=== PATIENT | male | born 1990 | race Caucasian/White ===

== ENCOUNTER 2022-12-09 12:09 | Emergency (ER) | payer SELFPAY ==
[~2022-12-09] VITALS: Ht 177.8 cm; Wt 90.0 kg
[~2022-12-09 12:09] MED LIST: CPR500T PO; MECL-124 PO; MECL12.579 PO; OMEP40CA36 PO; ONDA8TAB9 PO; ONDN4T PO; PRD10T PO; SCR1T PO; SULF1TAB38 PO
[2022-12-09] MEDS ORDERED: NS IV 1000 ML 1,000 ML IV SCH (12:45)
[2022-12-09] MEDS ORDERED: TETANUS,DIPTH,PERTUSS P/F (BOOSTRIX) 0.5 ML VIAL IM ONE (13:00)
[2022-12-09 13:01] LABS: BASOPHILS # (AUTO) 0.1 10^3/uL (0.0-0.1); BASOPHILS % (AUTO) 0 % (0-10); EOSINOPHILS # (AUTO) 0.1 10^3/uL (0.0-0.3); EOSINOPHILS % (AUTO) 0 % (0-10); HEMATOCRIT 40 % (40-54); HEMOGLOBIN 13.4 g/dL (13.3-17.7); LYMPHOCYTES # (AUTO) 1.2 10^3/uL (1.0-4.0); LYMPHOCYTES % (AUTO) 6 % (12-44); MEAN CORPUSCULAR HEMOGLOBIN 29 pg (25-34); MEAN CORPUSCULAR HGB CONC 34 g/dL (32-36); MEAN CORPUSCULAR VOLUME 86 fL (80-99); MEAN PLATELET VOLUME 10.5 fL (9.0-12.2); MONOCYTES # (AUTO) 1.5 10^3/uL (0.0-1.0); MONOCYTES % (AUTO) 7 % (0-12); NEUTROPHILS # (AUTO) 19.3 10^3/uL (1.8-7.8); NEUTROPHILS % (AUTO) 87 % (42-75); PLATELET COUNT 297 10^3/uL (130-400); WHITE BLOOD COUNT 22.3 10^3/uL (4.3-11.0)
--- NOTE | 2022-12-09 13:06 | ED Integumentary General ---
General Chief Complaint: Skin/Wound Problems Stated Complaint: SORE ON NECK Nursing Triage Note: PT AMB TO ED BY POV WITH C/O WOUND ON BACK OF NECK. PT REPORTS HE GOT A HAIR CUT A WEEK AGO AND NOTICED HE GOT RAZOR BURN. ABCESS NOTED TO BACK OF HEAD, REPORT GREEN DRAINAGE. DENIES FEVER. REPORTS HE HAS "FELT SICK" AND TIRED SINCE YESTERDAY. REPORTS HE WAS SEEN AT [facility] YESTERDAY AND HAS BEEN TAKING BACTRIM. (PARI BEJARANO) History of Present Illness Date Seen by Provider: Dec 09, 2022 Time Seen by Provider: 12:30 Initial Comments 31 year old male reports getting hair cut on 11/30/22. A few days after that he was concerned about an ingrown hair on his posterior neck. It continued to get worse and he went to [facility] yesterday, was started on Bactrim. No culture was obtained. Hx of MRSA to finger and chest, > 5 years ago. Unsure of his last tetanus. 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 Timing/Duration: getting worse Severity: moderate Location: scalp Possible Cause: no cause identified Associated Symptoms: change in skin texture, fever, malaise; No nasal congestion, No sore throat, No swelling/mass/lumps; other (mass and swelling to posterior neck) (PARI BEJARANO) Allergies and Home Medications Allergies Uncoded Allergies: MELONS AND BANNANAS (Allergy, THROAT [facility], 10/02/10) Patient Home Medication List Home Medication List Reviewed: Yes (PARI BEJARANO) Ondansetron Hcl (Zofran Odt) 8 Mg/Tab Tab.rapdis, 8 MG PO Q6H Prescribed by: DIPAK CORNEJO on 03/10/13 2204 Review of Systems Review of Systems Constitutional: see HPI, fever, malaise Respiratory: no symptoms reported, see HPI Cardiovascular: no symptoms reported, see HPI Musculoskeletal: see HPI, neck pain (secondary to abscess) Skin: see HPI, change in color (erythema to neck) Psychiatric/Neurological: No Symptoms Reported, See HPI (PARI BEJARANO) All Other Systems Reviewed Negative Unless Noted: Yes (PARI BEJARANO) Past Ccvdmbq-Nswicm-Zkcigx Hx Patient Social History Tobacco Use?: Yes Tobacco type used: Cigarettes (1 pack/day) Smoking Status: Current Everyday Smoker Use of E-Cig and/or Vaping dev: No Substance use?: Yes Substance type: Marijuana Substance frequency: Daily Alcohol Use?: No Pt feels they are or have been: No (PARI BEJARANO) Immunizations Up To Date Influenza Vaccine Up-to-Date: No; Not Current First/Initial COVID19 Vaccinat: X2 (PARI BEJARANO) Seasonal Allergies Seasonal Allergies: No (PARI BEJARANO) Past Medical History Surgery/Hospitalization HX: DENIES Gastroesophageal Reflux (PARI BEJARANO) Family Medical History Reviewed and Corrections made (PARI BEJARANO) No Pertinent Family Hx (PARI BEJARANO) Physical Exam Vital Signs Vital Signs - First Documented 12/09/22 12:18 Temp 37.4 Pulse 133 Resp 18 B/P (MAP) 145/84 (104) Pulse Ox 98 O2 Delivery Room Air (BELL ELENA MD) Vital Signs Capillary Refill : Less Than 3 Seconds (PARI BEJARANO) General Appearance: WD/WN, no apparent distress HEENT: PERRL/EOMI, normal ENT inspection, TMs normal, pharynx normal Neck: full range of motion, lymphadenopathy (R), lymphadenopathy (L), tender midline, other (moderate swelling, abscess, erythema and purulent drainage from posterior neck. ) Cardiovascular: normal peripheral pulses, regular rate, rhythm Respiratory: chest non-tender, lungs clear Gastrointestinal: normal bowel sounds, non tender, soft Neurologic/Psychiatric: no motor/sensory deficits, alert, normal mood/affect, oriented x 3 Skin: normal color, warm/dry Skin Problem Location: other (posterior neck) Skin Problem Character: abscess (PARI BEJARANO) Procedures/Interventions I&D : Site: posterior neck Blade Size: 11 I & D Procedure: betadine prep Progress using sterile technique, skin prepped with betadine, skin infiltrated with 4 ml of 1% Lidocaine, 1.5 cm incision made to open abscess. significant purulent drainage evacuated, additional culture obtained. Wound irrigated with 1 Liter of Sterile saline and hibiclens. Wound packed with bactroban and bulky sterile d ressing applied, patient tolerated well. (PARI BEJARANO) Progress/Results/Core Measures Results/Orders Lab Results Laboratory Tests Test 12/09/22 12:45 12/09/22 13:50 Range/Units White Blood Count 22.3 H 4.3-11.0 10^3/uL Red Blood Count 4.61 4.30-5.52 10^6/uL Hemoglobin 13.4 13.3-17.7 g/dL Hematocrit 40 40-54 % Mean Corpuscular Volume 86 80-99 fL Mean Corpuscular Hemoglobin 29 25-34 pg Mean Corpuscular Hemoglobin Concent 34 32-36 g/dL Red Cell Distribution Width 12.4 10.0-14.5 % Platelet Count 297 130-400 10^3/uL Mean Platelet Volume 10.5 9.0-12.2 fL Immature Granulocyte % (Auto) 1 % Neutrophils (%) (Auto) 87 H 42-75 % Lymphocytes (%) (Auto) 6 L 12-44 % Monocytes (%) (Auto) 7 0-12 % Eosinophils (%) (Auto) 0 0-10 % Basophils (%) (Auto) 0 0-10 % Neutrophils # (Auto) 19.3 H 1.8-7.8 10^3/uL Lymphocytes # (Auto) 1.2 1.0-4.0 10^3/uL Monocytes # (Auto) 1.5 H 0.0-1.0 10^3/uL Eosinophils # (Auto) 0.1 0.0-0.3 10^3/uL Basophils # (Auto) 0.1 0.0-0.1 10^3/uL Immature Granulocyte # (Auto) 0.1 0.0-0.1 10^3/uL Neutrophils % (Manual) 82 % Lymphocytes % (Manual) 10 % Monocytes % (Manual) 7 % Basophils % (Manual) 1 % Blood Morphology Comment NORMAL Prothrombin Time 14.0 12.2-14.7 SEC INR Comment 1.0 0.8-1.4 Activated Partial Thromboplast Time 43 H 24-35 SEC Sodium Level 136 135-145 MMOL/L Potassium Level 3.5 L 3.6-5.0 MMOL/L Chloride Level 102 98-107 MMOL/L Carbon Dioxide Level 20 L 21-32 MMOL/L Anion Gap 14 5-14 MMOL/L Blood Urea Nitrogen 8 7-18 MG/DL Creatinine 0.67 0.60-1.30 MG/DL Estimat Glomerular Filtration Rate 128 BUN/Creatinine Ratio 12 Glucose Level 146 H 70-105 MG/DL Calcium Level 9.5 8.5-10.1 MG/DL Corrected Calcium 9.4 8.5-10.1 MG/DL Total Bilirubin 0.3 0.1-1.0 MG/DL Aspartate Amino Transf (AST/SGOT) 19 5-34 U/L Alanine Aminotransferase (ALT/SGPT) 16 0-55 U/L Alkaline Phosphatase 71 40-136 U/L C-Reactive Protein High Sensitivity 14.08 H 0.00-0.50 MG/DL Total Protein 8.0 6.4-8.2 GM/DL Albumin 4.1 3.2-4.5 GM/DL Lactic Acid Level 0.89 0.50-2.00 MMOL/L (BELL ELENA MD) Medications Given in ED Current Medications Medications Dose Ordered Sig/Cora Route Start Time Stop Time Status Last Admin Dose Admin Diphtheria/ Tetanus/Acell Pertussis 0.5 ml ONCE ONCE IM 12/09/22 13:00 12/09/22 13:01 DC 12/09/22 13:11 0.5 ML Iohexol 75 ml ONCE ONCE IV 12/09/22 13:30 12/09/22 13:31 DC 12/09/22 13:29 75 ML Sodium Chloride 100 ml ONCE ONCE IV 12/09/22 13:30 12/09/22 13:31 DC 12/09/22 13:29 80 ML Vancomycin HCl 1000 mg/Sodium Chloride 250 ml @ 250 mls/hr ONCE ONCE IV 12/09/22 14:15 12/09/22 15:14 DC 12/09/22 14:32 250 MLS/HR (BELL ELENA MD) Vital Signs/I&O 12/09/22 12/09/22 12:18 15:51 Temp 37.4 37.1 Pulse 133 96 Resp 18 18 B/P (MAP) 145/84 (104) 120/53 Pulse Ox 98 98 O2 Delivery Room Air Room Air (BELL ELENA MD) Blood Pressure Mean: 104 Progress Progress Note : Time: 12:30 Progress Note patient assessed, large abscess noted to neck. Patient is tachy, normotensive and afebrile at time of presentation. Will obtain labs, NS 1 L per IV, CT soft t issue/neck. Tetanus vaccine. Culture obtained. 1250 Dr. Cottrell in ED, visited with patient. WBC 22,000. Patient stating he can' t be admitted to the hospital due to work. Will contact her, if he is agreeable to admission. 1315 remainder of labs reviewed with patient. Discussed risk versus benefits of admission to the hospital for consult with general surgery and IV antibiotics. The patient refuses admission. We will give 1 g of IV vancomycin in the ED. Patient understands he will need to leave AMA, as i have serious concerns about his decision to leave and his health. 1330 CT results reviewed with the patient, will plan I and D. [address] Link, recommended I and D, continue Bactrim DS and follow up wound care. 1430 I and D completed, patient has remained afebrile, normotensive, and HR 70- 80 through ED visit. Discharge instructions and wound care discussed with the patient. He will follow up at [facility] or an ED if symptoms are not improving or worsen. Stressed the importance to have friend or co-worker clean wound and apply antibiotic ointment. Again, discussed with patient option to admit and he refused, requesting to sign AMA. (PARI BEJARANO) Diagnostic Imaging Diagonstic Imaging: CT Plain Films/CT/US/NM/MRI: other (neck, soft tissue) Comments NAME: FREDRICK ARORA [facility] REC#: [id number] PT STATUS: REG ER : 1990 PHYSICIAN: PARI BEJARANO ADMIT DATE: 12/09/22/ER Draft Date of Exam:12/09/22 CT NECK (SOFT TISSUE) W PROCEDURE: CT neck soft tissue with contrast. TECHNIQUE: Multiple contiguous axial images were obtained through the neck after the administration of contrast. Auto Exposure Controls were utilized during the CT exam to meet ALARA standards for radiation dose reduction. INDICATION: Posterior neck abscess. Neck pain. COMPARISON: None. FINDINGS: Focal edema and fluid centered in the dorsal subcutaneous soft tissues along the midline at the levels of C1 through C3 measuring approximately 6.3 x 2.1 x 3.8 cm (LR x AP x SI). No peripherally enhancing or organized fluid collections amenable to drainage are identified. No radiopaque foreign bodies. Diffusely prominent bilateral level 5 cervical lymph nodes. No necrotic lymph nodes are identified. No enhancing mass in the neck. The floor of the mouth, tongue base, epiglottis, and retropharyngeal space are unremarkable. No suspicious mass or enhancement in the pharynx or larynx. The orbits are negative. Major salivary glands are normal. Major vessels in the neck are grossly patent. Normal thyroid gland. Lung apices are clear. IMPRESSION: Focal edema, fluid, and inflammatory change centered in the dorsal midline posterior subcutaneous tissues, consistent with developing phlegmon. No drainable fluid collection is identified. Dictated on workstation # [id number] Dict: 12/09/22 1333 Trans: 12/09/22 1345 [id number] Interpreted by: DONNA ALVAREZ MD Electronically signed by: (PARI BEJARANO) Departure Impression Primary Impression: Abscess Disposition: 01 HOME, SELF-CARE Condition: Against Medical Advice Departure-Patient Inst. Decision time for Depature: 14:00 (PARI BEJARANO) Referrals: [facility] (PCP/Family) Primary Care Physician Patient Instructions: Abscess Incision and Drainage (DC), Wound Care (DC), MRSA (DC) Add. Discharge Instructions: Continue to take the Bactrim antibiotic that you were given at [facility], twice daily. Clean wound with peroxide and apply the Bactroban ointment 3 times daily. Go to [facility] walk-in they are open 7 AM to 7 PM daily for wound checks. Return to emergency department at this facility or another hospital if symptoms are not improving or worsen. You may alternate between Tylenol 650 mg and ibuprofen 600 mg every 4 hours for pain or fever. You are leaving against medical advice, I am very concerned about the abscess and your health. I strongly recommend admission, IV antibiotics, evaluation by a surgeon and wound care. If you leave, your health could deteriorate, you could get an infection in your spine, head or brain. Leaving the hospital could result in serious illness, re-admission, or . All discharge instructions reviewed with patient and/or family. Voiced understanding. ATTENDING PHYSICIAN NOTE: I was physically present as attending physician in the emergency department during the care of this patient, but I was not directly involved in the decision making or delivery of care for this patient. (BELL ELENA MD) PARI BEJARANO Dec 09, 2022 13:06 BELL ELENA MD Dec 09, 2022 18:33
[2022-12-09 13:25] LABS: ALBUMIN 4.1 GM/DL (3.2-4.5); POTASSIUM 3.5 MMOL/L (3.6-5.0)
[2022-12-09 13:26] LABS: CALCIUM 9.5 MG/DL (8.5-10.1)
[2022-12-09] MEDS ORDERED: HOLD METFORMIN - RECEIVED CONTRAST 20 ML VIAL IV SCH (13:30)
[2022-12-09] MEDS ORDERED: IOHEXOL 350 MG/ML 100 ML (OMNIPAQUE 350) VIAL IV ONE (13:30)
[2022-12-09] MEDS ORDERED: NS 100 ML (IVPB) BAG IV ONE (13:30)
[2022-12-09 13:31] LABS: CREATININE SERUM 0.67 MG/DL (0.60-1.30)
--- NOTE | 2022-12-09 13:46 | Diagnostic Imaging Report ---
PROCEDURE: CT neck soft tissue with contrast. TECHNIQUE: Multiple contiguous axial images were obtained through the neck after the administration of contrast. Auto Exposure Controls were utilized during the CT exam to meet ALARA standards for radiation dose reduction. INDICATION: Posterior neck abscess. Neck pain. COMPARISON: None. FINDINGS: Focal edema and fluid centered in the dorsal subcutaneous soft tissues along the midline at the levels of C1 through C3 measuring approximately 6.3 x 2.1 x 3.8 cm (LR x AP x SI). No peripherally enhancing or organized fluid collections amenable to drainage are identified. No radiopaque foreign bodies. Diffusely prominent bilateral level 5 cervical lymph nodes. No necrotic lymph nodes are identified. No enhancing mass in the neck. The floor of the mouth, tongue base, epiglottis, and retropharyngeal space are unremarkable. No suspicious mass or enhancement in the pharynx or larynx. The orbits are negative. Major salivary glands are normal. Major vessels in the neck are grossly patent. Normal thyroid gland. Lung apices are clear. IMPRESSION: Focal edema, fluid, and inflammatory change centered in the dorsal midline posterior subcutaneous tissues, consistent with developing phlegmon. No drainable fluid collection is identified. Dictated by: Dictated on workstation # [id number]
[2022-12-09 13:55] LABS: BILIRUBIN,TOTAL 0.3 MG/DL (0.1-1.0)
[2022-12-09 14:06] LABS: BASOPHILS % (MANUAL) 1 %; LYMPHOCYTES % (MANUAL) 10 %; MONOCYTES % (MANUAL) 7 %; NEUTROPHILS % (MANUAL) 82 %; RBC MORPH NORMAL
[2022-12-09] MEDS ORDERED: LIDOCAINE 1% INJ 20 ML VIAL INJ ONE (14:15)
[2022-12-09] MEDS ORDERED: VANCOMYCIN INJECTION 1,000 MG in NS (IVPB) 250 ML IV ONE (14:15)
[2022-12-09] MEDS ORDERED: RX-MUPIROCIN (BACTROBAN) 2% OINT 22 GM TUBE TOP STA (14:36)
[2022-12-09 15:51] VITALS: BP 120/53
== END 2022-12-09 15:51 | disposition home or self-care (01) ==
LOC: EDUNIT# 12:09 → ER 12:12
DX: L02.11 Cutaneous abscess of neck (principal); R59.0 Localized enlarged lymph nodes; F17.210 Nicotine dependence, cigarettes, uncomplicated; Z23 Encounter for immunization
CPT/HCPCS: 10060; 36415; 70491; 80053; 83605; 85007; 85027; 85610; 85730; 86141; 87040; 87070; 87077; 87186; 87205; 90715